=== PATIENT | female | born 1945 | race Hispanic/Latino ===

== ENCOUNTER → 2017-02-19 | Outpatient (CLI) | payer MEDICARE ==
[~2017-02-19] MED LIST: REGADENOSON 0.4 MG/5 ML PF SYG IVP SCH
== END | disposition home or self-care (01) ==
LOC: SHCH 08:34
PROVIDERS: ATTEND Internal Medicine Cardiovascular Disease
DX: R06.09 Other forms of dyspnea (principal)
CPT/HCPCS: 78452; 93017; 96374; A9500 ×2; J2785

== ENCOUNTER 2021-07-27 13:08 | Emergency (ER) | payer MEDICARE ==
[~2021-07-27] VITALS: Ht 152.4 cm; Wt 83.0 kg
[2021-07-27] MEDS ORDERED: TETANUS/DIPHTHERIA TOXOID [ADULT] 0.5 ML VIAL IM ONE ×2 (13:30)
[2021-07-27] MEDS ORDERED: CEPHALEXIN 500 MG CAPSULE PO ONE (13:30)
[2021-07-27] MEDS ORDERED: CEPH500B PO (14:14)
[2021-07-27] MEDS ORDERED: OCTYL 2-CYANOACRYLATE 1 EACH TP ONE (14:18)
[2021-07-27 14:30] VITALS: BP 141/57
== END 2021-07-27 14:35 | disposition home or self-care (01) ==
LOC: EDH 13:08
DX: S61.012A Laceration without foreign body of left thumb without damage to nail, initial encounter (principal); F41.9 Anxiety disorder, unspecified; F32.A Depression, unspecified; K21.9 Gastro-esophageal reflux disease without esophagitis; I10 Essential (primary) hypertension; Z98.890 Other specified postprocedural states; Z90.49 Acquired absence of other specified parts of digestive tract; Z88.2 Allergy status to sulfonamides; W26.8XXA Contact with other sharp object(s), not elsewhere classified, initial encounter; Y93.89 Activity, other specified; Y92.098 Other place in other non-institutional residence as the place of occurrence of the external cause; Y99.8 Other external cause status
CPT/HCPCS: 12001; 73140; 90471; 90714